=== PATIENT | male | born 1965 | race Two or more races ===

== ENCOUNTER 2022-08-06 09:54 | Emergency (ER) | payer MEDICAID, OTHER ==
[~2022-08-06] VITALS: Ht 167.6 cm; Wt 94.4 kg
[2022-08-06] MEDS ORDERED: TRAM50TA2 PO (11:35)
[2022-08-06 11:45] VITALS: BP 176/101
== END 2022-08-06 11:48 | disposition home or self-care (01) ==
LOC: ER 09:54
DX: S46.912A Strain of unspecified muscle, fascia and tendon at shoulder and upper arm level, left arm, initial encounter (principal); I10 Essential (primary) hypertension; F17.210 Nicotine dependence, cigarettes, uncomplicated; W18.39XA Other fall on same level, initial encounter; Y93.89 Activity, other specified; Y92.89 Other specified places as the place of occurrence of the external cause; Y99.8 Other external cause status
CPT/HCPCS: 73030